=== PATIENT | female | born 1965 | race Native Hawaiian/Other Pacific Islander ===

== ENCOUNTER 2018-01-03 07:31 | Emergency (ER) | payer OTHER ==
[~2018-01-03] VITALS: Ht 157.5 cm; Wt 72.6 kg
[2018-01-03 07:25] VITALS: BP 145/82; TEMP 97.7
== END 2018-01-03 08:40 | disposition home or self-care (01) ==
LOC: ED 07:31
PROC: 2W3MX1Z Immobilization of Left Lower Extremity using Splint (ICD-10-PCS; principal; 2018-01-03)
DX: S80.02XA Contusion of left knee, initial encounter (principal); W01.0XXA Fall on same level from slipping, tripping and stumbling without subsequent striking against object, initial encounter; Y92.239 Unspecified place in hospital as the place of occurrence of the external cause
CPT/HCPCS: 99283; L1830

== ENCOUNTER 2018-01-15 15:40 | Outpatient (CLI) | payer OTHER | END 2018-01-15 19:19 | disposition home or self-care (01) | LOC: RAD 15:40 | DX: M25.562 Pain in left knee (principal) ==